=== PATIENT | female | born 1990 | race Caucasian/White ===

== ENCOUNTER 2023-02-15 21:20 | Inpatient (IN) | payer OTHER ==
[2023-02-16] MEDS ORDERED: ELECTROLYTE-148 SOLN 1,000 ML IV SCH ×2 (00:50→01:45)
[2023-02-16] MEDS ORDERED: PROMETHAZINE HCL 25 MG/1 ML VIAL IVPB ONE (00:55)
[2023-02-16] MEDS ORDERED: BUTORPHANOL TARTRATE 1 MG/ML VIAL IVPB ONE ×2 (00:55)
[2023-02-16] MEDS ORDERED: AMPICILLIN - 2 GM in SODIUM CHLORIDE 100 ML IVPB ONE (01:00)
[2023-02-16] MEDS ORDERED: AMPICILLIN SODIUM 2 GM VIAL ONE (01:08)
[2023-02-16 01:23] LABS: BASO % 0.3 % (0-2.0); EOS % 0.4 % (0-4.5); HEMATOCRIT 36.2 % (32.4-45.2); MCH 25.4 pg (25.7-33.7); MCHC 33.3 g/dl (32.0-36.0); MEAN CELL VOLUME 76.2 fl (80-96); MEAN PLT VOLUME 8.2 fl (7.5-11.1); MONO % 4.5 % (3.8-10.2); NEUT % 67.8 % (42.8-82.8); PLATELET COUNT 234 10^3/uL (134-434); RBC 4.74 M/mm3 (3.60-5.2); RDW 16.2 % (11.6-15.6)
[2023-02-16 01:28] VITALS: BMI 31.5
[2023-02-16 01:30] LABS: INR 0.94 (0.83-1.09); PROTHROMBIN TIME (PATIENT) 10.9 SEC (9.7-13.0)
[2023-02-16 01:33] LABS: ACTIVATED PTT 25.5 SECONDS (25.2-36.5)
[2023-02-16] MEDS ORDERED: OXYTOCIN 20 UNITS in 0.9% NS 20 UNIT/1,000 ML INFUS.BAG IV ONE (01:42)
[2023-02-16] MEDS ORDERED: LIDOCAINE HCL 1% PRESERVATIVE FREE - 30ML VIAL ONE (01:42)
[2023-02-16 01:56] LABS: CHLORIDE 110 mmol/L (98-107); POTASSIUM 4.4 mmol/L (3.5-5.1); SODIUM 140 mmol/L (136-145)
[2023-02-16 01:59] LABS: ALBUMIN 2.7 g/dl (3.4-5.0); ANION GAP 9 MMOL/L (8-16); CALCIUM 8.8 mg/dL (8.5-10.1); CO2 20 mmol/L (21-32); GLUCOSE,RANDOM 104 mg/dL (74-106)
[2023-02-16 02:00] LABS: BLOOD UREA NITROGEN 14.9 mg/dL (7-18)
[2023-02-16 02:02] LABS: CREATININE 0.7 mg/dL (0.55-1.3); SGPT/ALT 14 U/L (13-61)
[2023-02-16 02:03] LABS: SGOT/AST 16 U/L (15-37)
[2023-02-16 02:04] LABS: ALK PHOS 238 U/L (45-117); TOT PROT 6.6 g/dl (6.4-8.2)
[2023-02-16 02:47] LABS: BILIRUBIN,TOTAL < 0.1 mg/dL (0.2-1)
[2023-02-16 02:56] LABS: HEPATITIS B SURFACE AG MATERN NON-REACTIVE (NONREACTIVE)
[2023-02-16] MEDS ORDERED: WITCH HAZEL 50% (TUCKS) 40 PAD/JAR PAD TP PRN (03:02)
[2023-02-16] MEDS ORDERED: METHYLERGONOVINE MALEATE 0.2 MG/1 ML AMP IM PRN (03:02)
[2023-02-16] MEDS ORDERED: BISACODYL 10 MG SUPP.RECT RC PRN (03:02)
[2023-02-16] MEDS ORDERED: BENZOCAINE 28 GM HEMORRHOIDAL OINTMENT TP PRN (03:02)
[2023-02-16] MEDS ORDERED: ACETAMINOPHEN 325 MG TABLET (FP) PO PRN (03:02)
[2023-02-16] MEDS ORDERED: BENZOCAINE 20% 57 GM BOTTLE TP PRN (03:02)
[2023-02-16] MEDS ORDERED: IBUPROFEN 600 MG TABLET (FP) PO ONE (03:15)
[2023-02-16] MEDS ORDERED: OXYTOCIN 20 UNITS in 0.9% NS 20 UNIT/1,000 ML INFUS.BAG IV SCH (03:15)
[2023-02-16] MEDS: IBUPROFEN 600 MG TABLET (FP) PO PRN (03:18)
[2023-02-16 03:25] LABS: HIV INTERPRETATION NEGATIVE (NEGATIVE)
[2023-02-16] MEDS ORDERED: AMPICILLIN - 1 GM in SODIUM CHLORIDE 100 ML IVPB SCH (05:00)
[2023-02-16 06:31] LABS: METHADONE, UR NEGATIVE (NEGATIVE); OPIATES, URI NEGATIVE (NEGATIVE); PHENCYCLIDINE,URINE NEGATIVE (NEGATIVE); URINE BARBITURATES NEGATIVE (NEGATIVE); URINE BENZODIAZEPINES NEGATIVE (NEGATIVE)
[2023-02-16 06:42] LABS: URINE APPEARANCE BLOODY; URINE BILIRUBIN NEGATIVE (NEGATIVE); URINE GLUCOSE (UA) NEGATIVE (NEGATIVE)
[2023-02-16 06:43] LABS: URINE PROTEIN 4+ (NEGATIVE); URINE UROBILINOGEN 0.2 mg/dL (0.2-1.0)
[2023-02-16 06:44] LABS: URINE COLOR RED
[2023-02-16 07:13] LABS: COCAINE, UR NEGATIVE (NEGATIVE); URINE AMPHETAMINES NEGATIVE (NEGATIVE)
[2023-02-16 07:19] LABS: URINE RBC >100 /uL (0-23.9)
[2023-02-16 08:08] LABS: SYPHILIS W/ RPR CONF NON-REACTIVE (NONREACTIVE)
[2023-02-16] MEDS: PRENATAL VITAMINS W/ FOLIC ACID TABLET (FP) PO SCH (09:47)
[2023-02-17 08:36] LABS: BASO % 0.4 % (0-2.0); EOS % 0.9 % (0-4.5); HEMATOCRIT 29.4 % (32.4-45.2); HEMOGLOBIN 9.6 GM/dL (10.7-15.3); LYMPH % 35.1 % (8-40); MCH 25.3 pg (25.7-33.7); MCHC 32.7 g/dl (32.0-36.0); MEAN CELL VOLUME 77.2 fl (80-96); MEAN PLT VOLUME 8.1 fl (7.5-11.1); MONO % 4.1 % (3.8-10.2); NEUT % 59.5 % (42.8-82.8); PLATELET COUNT 197 10^3/uL (134-434); RBC 3.81 M/mm3 (3.60-5.2); RDW 16.1 % (11.6-15.6); WHITE BLOOD COUNT 12.3 K/mm3 (4.0-10.0)
[2023-02-17] MEDS: PRENATAL VITAMINS W/ FOLIC ACID TABLET (FP) PO SCH (09:14)
[2023-02-17] MEDS ORDERED: DIPHTH,PERTUSS(ACELL),TET 0.5 ML DISP.SYRIN IM ONE (15:00)
[2023-02-17] MEDS ORDERED: SENNOSIDES/DOCUSATE COMBO (SENNA PLUS) TABLET (UD) PO PRN (22:00)
[2023-02-18] MEDS: PRENATAL VITAMINS W/ FOLIC ACID TABLET (FP) PO SCH (09:29)
[2023-02-18] MEDS: IBUPROFEN 600 MG TABLET (FP) PO PRN (09:29)
[2023-02-18 09:31] VITALS: BP 102/57; PULSE 74; RESP 16; TEMP 99.2
== END 2023-02-18 13:00 | disposition home or self-care (01) | DRG 560 ==
LOC: JDEL 21:20 → JLDR 02-16 00:22 → J3W 02-16 05:02
PROVIDERS: ADMIT Obstetrics & Gynecology; ATTEND Obstetrics & Gynecology
PROC: 10E0XZZ Delivery of Products of Conception, External Approach (ICD-10-PCS; principal; 2023-02-16)
PROC: 0W8NXZZ Division of Female Perineum, External Approach (ICD-10-PCS; 2023-02-16)
DX: O80 Encounter for full-term uncomplicated delivery (principal); Z3A.38 38 weeks gestation of pregnancy; Z37.0 Single live birth
CPT/HCPCS: 36415; 59025; 80053; 80307; 81003; 85025; 85610; 85730; 86780; 86850; 86900; 86901; 87340; 87389; 90715